=== PATIENT | female | born 1960 | race Caucasian/White ===

== ENCOUNTER → 2016-10-01 | Outpatient (CLI) | payer BC ==
[~2016-10-01] MED LIST: ESTRACE 1MG1 MG/TAB PO; FLEXERIL 1010 MG/TAB PO; FLONASE NASAL S16 GM NS; MOBIC15 MG PO; NORCO 325 MG-7.1 TAB PO; PRAVACHOL 20MG20 MG PO; PRAVACHOL10 MG PO
== END ==
LOC: COL.PUL 10:36
DX: R05 Cough (principal)

== ENCOUNTER → 2017-07-29 | Outpatient (CLI) | payer BC | LOC: MHCPAIN 12:37 | DX: G89.29 Other chronic pain (principal); M47.27 Other spondylosis with radiculopathy, lumbosacral region; M53.3 Sacrococcygeal disorders, not elsewhere classified; Z87.891 Personal history of nicotine dependence | CPT/HCPCS: G0463 ==

== ENCOUNTER → 2017-08-07 | Outpatient (CLI) | payer BC | LOC: MC.RAD 07-23 11:00 | DX: Z12.31 Encounter for screening mammogram for malignant neoplasm of breast (principal) ==

== ENCOUNTER → 2017-09-07 | Outpatient (CLI) | payer BC | LOC: MHCPAIN 14:54 | DX: G89.29 Other chronic pain (principal); M47.27 Other spondylosis with radiculopathy, lumbosacral region | CPT/HCPCS: G0463 ==

== ENCOUNTER 2017-10-29 08:00 | Outpatient (RCR) | payer BC | END 2017-10-31 08:03 | disposition home or self-care (01) | LOC: WSPT 08:00 | DX: M47.27 Other spondylosis with radiculopathy, lumbosacral region (principal); M53.3 Sacrococcygeal disorders, not elsewhere classified ==

== ENCOUNTER 2018-04-09 07:30 | Outpatient (RCR) | payer BC | END 2018-04-09 08:00 | disposition home or self-care (01) | LOC: WSPT 07:30 | DX: M54.5 Low back pain (principal) ==

== ENCOUNTER 2018-10-11 08:06 | Outpatient (RCR) | payer OTHER | END 2018-12-14 15:26 | disposition home or self-care (01) | LOC: WSOH 08:06 | DX: M25.562 Pain in left knee (principal); S80.02XA Contusion of left knee, initial encounter; G47.30 Sleep apnea, unspecified; K21.9 Gastro-esophageal reflux disease without esophagitis; Z96.652 Presence of left artificial knee joint; Z90.710 Acquired absence of both cervix and uterus; Z87.891 Personal history of nicotine dependence; W17.89XA Other fall from one level to another, initial encounter; Y92.214 College as the place of occurrence of the external cause; Y99.0 Civilian activity done for income or pay ==

== ENCOUNTER → 2019-06-16 | Outpatient (CLI) | payer BC | LOC: MC.RAD 07:36 | DX: Z12.31 Encounter for screening mammogram for malignant neoplasm of breast (principal) ==

== ENCOUNTER → 2019-08-16 | Outpatient (CLI) | payer BC | LOC: MHCPAIN 14:14 | DX: M54.12 Radiculopathy, cervical region (principal); M47.812 Spondylosis without myelopathy or radiculopathy, cervical region | CPT/HCPCS: G0463 ==

== ENCOUNTER → 2019-08-25 | Outpatient (CLI) | payer BC | LOC: MHCPAIN 08:46 | DX: M50.90 Cervical disc disorder, unspecified, unspecified cervical region (principal); M50.20 Other cervical disc displacement, unspecified cervical region | CPT/HCPCS: J1100; Q9967 ==

== ENCOUNTER → 2019-09-29 | Outpatient (CLI) | payer BC | LOC: MHCPAIN 14:42 | DX: M54.5 Low back pain (principal); M53.3 Sacrococcygeal disorders, not elsewhere classified | CPT/HCPCS: J1100; Q9967 ==

== ENCOUNTER → 2019-10-12 | Outpatient (CLI) | payer BC | LOC: MHCPAIN 14:33 | DX: M53.3 Sacrococcygeal disorders, not elsewhere classified (principal); M47.27 Other spondylosis with radiculopathy, lumbosacral region; E11.9 Type 2 diabetes mellitus without complications; Z79.84 Long term (current) use of oral hypoglycemic drugs; J44.9 Chronic obstructive pulmonary disease, unspecified | CPT/HCPCS: G0463 ==

== ENCOUNTER → 2020-06-18 | Outpatient (CLI) | payer BC | LOC: MC.RAD 07:31 | DX: Z12.31 Encounter for screening mammogram for malignant neoplasm of breast (principal) ==